=== PATIENT | male | born 1990 | race Caucasian/White ===

== ENCOUNTER 2016-04-20 10:59 | Emergency (ER) | payer MEDICAID ==
[2016-07-04 05:45] VITALS: BMI 32.5
== END 2016-04-20 14:00 | disposition left against medical advice (07) ==
LOC: D.ER 10:59
DX: R07.9 Chest pain, unspecified (principal)

== ENCOUNTER → 2016-06-02 11:17 | Outpatient (CLI) | payer MEDICAID ==
[~2016-06-02 11:17] MED LIST: HYDROCODONE-APA1 TAB PO
[2016-07-04 05:45] VITALS: BMI 32.5
== END | disposition home or self-care (01) ==
LOC: D.MRI 11:17
DX: M25.562 Pain in left knee (principal)

== ENCOUNTER 2016-07-04 05:07 | Day surgery (SDC) | payer MEDICAID ==
[~2016-07-04] VITALS: Ht 175.3 cm; Wt 99.8 kg
--- NOTE | ~2016-07-04 | OP ---
PATIENT NAME: SHARATH HOSKINS MEDICAL RECORD: [id number] :90 LOCATION:[facility] ADMISSION DATE: SURGEON: ARLIN FERRER MD DATE OF OPERATION: 07/04/2016 PREOPERATIVE DIAGNOSES: Left knee pain, lateral meniscus tear. 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 PROCEDURES PERFORMED: Left knee partial lateral meniscectomy and chondral drilling of the medial femoral condyle. SURGEON: Papo Ferrer MD. ANESTHESIA: General. CONDITION: He tolerated the procedure well and was transferred to the recovery room in stable condition at termination of the procedure. INDICATIONS: A 25-year-old gentleman who has been having significant pain in his knee. This is not getting better. We discussed the options and he elected to go ahead and proceed with a knee arthroscopy. We discussed risks, benefits, and alternatives including continued pain. He understood and wished to proceed. OPERATIVE REPORT: The patient was taken to the operating room and placed in supine position. General anesthesia was obtained. His left knee was confirmed to be the correct knee, following which it was prepped and draped in normal fashion. Procedure was begun by marking out portal sites and injecting them with 0.25% Marcaine with epinephrine. I then established the portals, anterolateral for the scope and inflow, superior medial for the outflow. He then had the procedure continued by inspecting the patellofemoral joint. The patellofemoral joint was notably a quite clean, no significant lesions noted in the patellofemoral area. Dropping down the medial gutter, he did have a fairly obvious medial femoral condyle lesion. It was fairly large. The meniscus looked okay. Looking at the ACL and PCL, they were in good shape laterally. He had a small posterior root tear, which I took out, but the rest of it looked good. I went back, cleaned up the medial femoral condyle lesion, drilled it with 0.062 K-wire as we do not have a ____. The pressure was turned down confirming that there was flow through these holes, following which he was closed with 3-0 Prolene, injected with Duramorph and Marcaine, was awakened and transferred to recovery room in stable condition. TRANSINT:[id number] Voice Confirmation ID: [id number] DOCUMENT ID: [id number] ARLIN FERRER MD CC: [id number] DICTATION DATE: 07/04/1643 TOBACCO CLOTH RECLAIMER: 07/04/16 09 REG [facility] [address] [id number]
[2016-07-04 05:45] VITALS: BP 132/79; Ht 175.3 cm; Wt 99.8 kg
[2016-07-04] MEDS ORDERED: HYDROCODONE-APA1 TAB PO (07:42)
--- NOTE | 2016-07-04 09:32 | NUR ---
IV DC WITH CATHER TIP INTACT
== END 2016-07-04 09:30 | disposition home or self-care (01) ==
LOC: D.OPS 05:07 → D.PAN 07:00 → D.OPS 08:00
DX: S83.282A Other tear of lateral meniscus, current injury, left knee, initial encounter (principal); M94.262 Chondromalacia, left knee